=== PATIENT | male | born 1975 | race Caucasian/White ===

== ENCOUNTER 2024-06-06 17:02 | Emergency (ER) | payer SELFPAY ==
[~2024-06-06] VITALS: Ht 172.7 cm; Wt 78.0 kg
[2024-06-06 17:05] VITALS: O2SAT 95
[2024-06-06] MEDS: TETANUS, DIPHTHERIA, PERTUSSIS VAC/PF 0.5ML (>10YR OLD) IM ONE (17:15)
[2024-06-06 18:20] VITALS: BP 142/71; PULSE 82; RESP 16; TEMP 36.61404; O2SAT 98
== END 2024-06-06 18:22 | disposition home or self-care (01) ==
LOC: ER 17:02
DX: S01.01XA Laceration without foreign body of scalp, initial encounter (principal); G89.11 Acute pain due to trauma; Y08.89XA Assault by other specified means, initial encounter; Y93.89 Activity, other specified; Y92.89 Other specified places as the place of occurrence of the external cause; Y99.8 Other external cause status
CPT/HCPCS: 90471; 90715; 99285